=== PATIENT | male | born 1975 | race Two or more races ===

== ENCOUNTER 2016-09-03 12:46 | Emergency (ER) | payer MEDICAID ==
[2016-09-03 13:10] VITALS: BP 93/66; PULSE 77; RESP 20; TEMP 96.8; O2SAT 98
== END 2016-09-03 14:54 | disposition home or self-care (01) | DRG 101 ==
LOC: ED 12:46
DX: G40.909 Epilepsy, unspecified, not intractable, without status epilepticus (principal); M25.511 Pain in right shoulder
CPT/HCPCS: 73030; 99282

== ENCOUNTER 2017-10-23 07:35 | Emergency (ER) | payer MEDICAID ==
[2017-10-23 08:02] VITALS: TEMP 96
[2017-10-23 08:25] LABS: BASOPHILS % (AUTO) 1 % (0-3); EOSINOPHILS % (AUTO) 2 % (0-9); HEMATOCRIT 34 % (39-53); HEMOGLOBIN 12.1 gm/dl (13.5-17.7); LYMPHOCYTES % (AUTO) 22.2 % (10-50); MEAN CORPUSCULAR HEMOGLOBIN 32.4 pg (27.0-32.0); MEAN CORPUSCULAR HGB CONC 35.3 gm/dl (32.0-36.0); MEAN CORPUSCULAR VOLUME 92 fL (80-100); MONOCYTES % (AUTO) 5.9 % (0-12)
[2017-10-23 08:39] LABS: ALBUMIN 3.6 gm/dl (3.4-5.0); BILIRUBIN,TOTAL 0.5 mg/dl (0.2-1.0); CALCIUM 8.1 mg/dl (8.5-10.1); CARBON DIOXIDE 20.6 mEq/L (21-32); CREATININE 1.12 mg/dl (0.80-1.30); POTASSIUM 3.5 mMol/L (3.5-5.1); TOTAL PROTEIN 7.3 gm/dl (6.4-8.2)
[2017-10-23] MEDS ORDERED: CALCIUM CARBONATE 500 MG TAB PO ONE (08:49)
[2017-10-23] MEDS ORDERED: CALCIUM CARBONATE 500 MG TAB ONE (08:56)
[2017-10-23 09:31] VITALS: BP 100/72; PULSE 95; RESP 16; O2SAT 100
== END 2017-10-23 09:55 | disposition home or self-care (01) | DRG 101 ==
LOC: ED 07:35
DX: G40.919 Epilepsy, unspecified, intractable, without status epilepticus (principal); R40.2142 Coma scale, eyes open, spontaneous, at arrival to emergency department; R40.2352 Coma scale, best motor response, localizes pain, at arrival to emergency department; R40.2232 Coma scale, best verbal response, inappropriate words, at arrival to emergency department
CPT/HCPCS: 36415; 80053; 85025; 99283; A9270-GY

== ENCOUNTER 2018-10-18 18:09 | Emergency (ER) | payer MEDICAID ==
[2018-10-18 18:09] VITALS: O2SAT 100
[2018-10-18 18:29] VITALS: RESP 20; TEMP 97.6
[2018-10-18 19:09] LABS: APPEARANCE,URINE Cloudy; BILIRUBIN,URINE 1+ (NEGATIVE); COLOR,URINE Brown; GLUCOSE, URINE (UA) NEGATIVE (NEGATIVE); KETONES,URINE NEGATIVE (NEGATIVE); LEUKOCYTE ESTERASE ,URINE 1+ (NEGATIVE); NITRATE,URINE POSITIVE (NEGATIVE); OCCULT BLOOD,URINE 3+ (NEG-TRACE); UROBILINOGEN,URINE 0.2 (0.2-1.0 EU)
[2018-10-18 19:24] LABS: BACTERIA UNABLE (< 1+); CRYSTALS UNABLE (0-3 AVE/HPF); EPITHELIAL CELLS UNABLE (SQUAMOUS); ICTOTEST,URINE NEGATIVE (NEGATIVE); RBC,URINE TNTC (0-3AV/HPF); WBC,URINE UNABLE TO QUANTITATE (0-5AV/HPF)
[2018-10-18] MEDS: CEFTRIAXONE 1 GM PDS IM ONE (19:38)
[2018-10-18] MEDS ORDERED: CEFTRIAXONE 1 GM PDS ONE (19:43)
[2018-10-18] MEDS ORDERED: LIDOCAINE HCL 1% MPF 30 SOL ONE (19:43)
[2018-10-18 20:00] LABS: LACTIC ACID 0.8 mMol/L (0.0-2.0)
[2018-10-18 20:01] LABS: BASOPHILS % (AUTO) 1 % (0-3); EOSINOPHILS % (AUTO) 1 % (0-9); HEMATOCRIT 35 % (39-53); HEMOGLOBIN 12.2 gm/dl (13.5-17.7); LYMPHOCYTES % (AUTO) 17.7 % (10-50); MEAN CORPUSCULAR HEMOGLOBIN 31.6 pg (27.0-32.0); MEAN CORPUSCULAR HGB CONC 34.5 gm/dl (32.0-36.0); MEAN CORPUSCULAR VOLUME 92 fL (80-100); MONOCYTES % (AUTO) 6.6 % (0-12); NEUTROPHILS % (AUTO) 74.3 % (37-80)
[2018-10-18 20:14] LABS: ALBUMIN 3.5 gm/dl (3.4-5.0); BILIRUBIN,TOTAL 0.5 mg/dl (0.2-1.0); CALCIUM 8.6 mg/dl (8.5-10.1); CREATININE 1.23 mg/dl (0.80-1.30); POTASSIUM 3.7 mMol/L (3.5-5.1); TOTAL PROTEIN 7.6 gm/dl (6.4-8.2)
[2018-10-19 01:34] VITALS: BP 111/76; PULSE 76
== END 2018-10-18 20:48 | disposition home or self-care (01) | DRG 690 ==
LOC: ED 18:09
DX: N39.0 Urinary tract infection, site not specified (principal)
CPT/HCPCS: 36415; 80053; 81001; 85025; 87077; 87088; 87186; 96372; 99283; J0696; J2001